=== PATIENT | female | born 1990 | race Hispanic/Latino ===

== ENCOUNTER 2018-07-08 07:25 | Day surgery (SDC) | payer OTHER ==
[2018-07-08] MEDS ORDERED: Ringers Lactate 1,000 ML IV ONE (07:42)
[2018-07-08] MEDS ORDERED: PROPOFOL 200 MG/20 ML VIAL IV ONE (07:49)
[2018-07-08] MEDS ORDERED: LIDOCAINE 2% MPF 5 ML VIAL ONE (07:50)
[2018-07-08] MEDS ORDERED: MIDAZOLAM HCL 2 MG/2 ML INJ ONE (07:50)
[2018-07-08] MEDS ORDERED: FENTANYL CITR 100 MCG/2 ML ONE (07:50)
[2018-07-08] MEDS ORDERED: ROCURONIUM 50 MG/5 ML VIAL IV ONE (07:51)
[2018-07-08] MEDS ORDERED: ONDANSETRON 4 MG/2 ML VIAL ONE (07:52)
[2018-07-08] MEDS ORDERED: BUPIVACA 0.25%/EPI 0.0005% MDV 50 ML VIAL ONE (07:53)
[2018-07-08] MEDS ORDERED: CEFAZOLIN/SWI 2gm 2 GM/20 ML SYR ONE (07:58)
[2018-07-08 08:04] LABS: Specific Gravity 1.015 (1.005-1.030)
--- NOTE | 2018-07-08 09:14 | P.OP ---
Collar Trimmer: Jeff Varma Preoperative diagnosis: Ventral Midline Abdominal Hernia Postoperative diagnosis: Ventral Midline Abdominal Hernia Primary procedure: Laparoscopic Ventral Hernia Repair with Mesh Anesthesia: GETA + Local Estimated blood loss: <2cc Specimen: None Findings: Ventral Midline Abdominal Hernia ~4cm Complications: None Implants: Bard Ventralite ST with Echo Position 11.4cm round Transferred to: Recovery Room Condition: Good
[2018-07-08] MEDS ORDERED: GLYCOPYRROLATE 0.2 MG/ML SYR ONE (09:26)
[2018-07-08] MEDS ORDERED: NEOSTIGMINE 1 MG/ML -10 ML VIAL ONE (09:26)
[2018-07-08] MEDS: MORPHINE 4 MG/ML SYR ONE ×4 (09:35→09:52)
[2018-07-08] MEDS ORDERED: HYDROCODONE/APAP 5/325 MG TAB ONE (10:57)
--- NOTE | 2018-07-08 19:53 | OP ---
Date of Procedure: 07/08/2018 Surgeon: Luis Armando Burgess MD, [facility] Attendant: Alexandria Boone. Preoperative Diagnosis: Ventral midline abdominal hernia. Postoperative Diagnosis: Ventral midline abdominal hernia. Procedure Performed: Laparoscopic ventral hernia repair with mesh. Anesthesia: General endotracheal. Estimated Blood Loss: Less than 2 cc. Specimen: None. Findings: Midline ventral abdominal hernia of approximately 4 cm size. Complications: None. Implants: Bard Ventralight ST with the Echo Positioning System 11.4 cm round. Disposition: Transferred to recovery room in good condition. Procedure In Detail: After informed consent was obtained, the patient was brought to the operating r oom, prepped and draped in the usual sterile fashion. After adequate anesthesia was achieved, a left upper quadrant incision was made. A 5 mm 0-degree optical trocar was used to enter the abdomen with out evidence of complication. Insufflation was obtained to 15 mmHg at this time. The area was inspe cted. There was no injury to vital structures upon entry to the abdomen. Additional trocar site was chosen in the left lower quadrant, similarly anesthetized, sharply incised. A 5-mm trocar was intro duced in the abdomen without evidence of complication under direct visualization. The left upper wendy drant trocar was then up-sized to a 12 mm under direct visualization without evidence of complication . Additional trocar site was chosen in the right lower quadrant. This was similarly anesthetized, s harply incised. A 5-mm trocar was introduced in the abdomen without evidence of complication under d irect visualization. The LigaSure device was then used to reduce the abdominal contents from the pre peritoneal space and from the hernia itself after dissection of the hernia sac. This area was cleare d using the LigaSure device and adipose tissue was removed using the LigaSure device as it appeared t o be compromised by the dissection, as such it was removed through the EndoCatch bag from the left lo wer quadrant trocar. The area was inspected therein for proper hemostasis, which was achieved. The falciform ligament was dissected back slightly with the LigaSure device to ensure a good landing spot as the hernia was approximately 4 cm in size. The Bard Ventralight ST mesh with Echo Positioning Sy stem, approximately 11.4 cm round mesh was brought in through the lateral trocar, positioned at the c entral portion of this and deployed from a separate stab incision in the supraumbilical position. Af ter it was deployed, the AbsorbaTack fixation system was used to fix the mesh to the anterior abdomin al wall with a double crown, and the deployment system was then removed through the lateral trocar an d found to be intact. At this time, the remainder of the mesh was fixated to the anterior abdominal wall with remaining SorbaFix fixation tacks with good approximation of the anterior bowel wall. The area was inspected for proper hemostasis, which was achieved without any additional hemostatic maneuv ers. The abdomen was then partially desufflated and the mesh was verified in good position once agai n. At this time, the left upper quadrant trocar was removed and the trocar site was closed using a [place] suture passer with a 0 Vicryl in interrupted fashion with good approximation of the ti ssue. The abdomen was then completely desufflated under direct visualization without evidence of com plication. All skin incisions were copiously irrigated and closed with a 4-0 Monocryl in a running f ashion. Dermabond placed over top. The patient tolerated procedure well without evidence of complic ation and transferred to PACU in good condition. All counts were correct at the end of the case. REGINALDO/TAZ Voice ID: [id number] Report ID: [id number]
== END 2018-07-08 11:25 | disposition home or self-care (01) ==
LOC: OR 07:25
PROVIDERS: ATTEND Surgery
PROC: 0WUF4JZ Supplement Abdominal Wall with Synthetic Substitute, Percutaneous Endoscopic Approach (ICD-10-PCS; principal; 2018-07-08 08:30)
DX: K42.9 Umbilical hernia without obstruction or gangrene (principal)
CPT/HCPCS: 81025; 88302; C1781; J0690; J2250; J2405; J2704; J2710; J3010